=== PATIENT | female | born 1950 | race African-American/Black ===

== ENCOUNTER → 2020-05-18 | Outpatient (CLI) | payer BC, MEDICARE ==
--- NOTE | 2020-05-22 08:56 | RAD ---
DATE: 05/18/2020 9:49 AM EXAM: MAMMO JONNY SCREENING BILATERAL HISTORY: Screening. Previous right subareolar duct excision for nipple discharge. COMPARISON: Bilateral mammogram of 02/11/2019, right diagnostic mammogram of 04/14/2017 and bilateral mammogram of 04/08/2017. TECHNIQUE: Bilateral CC and MLO views of the breasts were performed. Bilateral breast tomosynthesis was performed in CC and MLO projections. FINDINGS: Breast Density: SCATTERED The breast parenchyma shows scattered fibroglandular densities. Breast parenchyma level B Stable masses in the right breast associated with benign biopsy markers (a U-shaped and a loose coil biopsy marker marking 6 and 14 mm masses respectively in the anterior upper outer right breast). No suspicious masses, microcalcifications or architectural distortion is present to suggest malignancy in either breast. The visualized axillae are unremarkable. IMPRESSION: No mammographic evidence of malignancy. BI-RADS CATEGORY: 2 BENIGN FINDING(S) RECOMMENDED FOLLOW-UP: 12M 12 MONTH FOLLOW-UP Annual screening mammography is recommended, unless clinically indicated sooner based on symptoms or change in physical exam. PQRS compliance statement: Patient information was entered into a reminder system with a target due date for the next mammogram. Mammography is a sensitive method for finding small breast cancers, but it does not detect them all and is not a substitute for careful clinical examination. A negative mammogram does not negate a clinically suspicious finding and should not result in delay in biopsying a clinically suspicious abnormality. "Our facility is accredited by the [employer] Mammography Program."
== END | disposition home or self-care (01) ==
LOC: MAMMO 09:26
PROVIDERS: ATTEND Internal Medicine
DX: Z12.31 Encounter for screening mammogram for malignant neoplasm of breast (principal); N64.89 Other specified disorders of breast
CPT/HCPCS: 77063; 77067